=== PATIENT | male | born 1955 | race American Indian/Alaskan Native ===

== ENCOUNTER 2020-01-09 00:45 | Emergency (ER) | payer MEDICARE ==
[2020-01-09 03:36] LABS: Basophils # (Auto) 0.1 K/mm3 (0.0-0.1); Basophils % (Auto) 1.2 % (0.0-1.8); Eosinophils # (Auto) 0.4 K/mm3 (0.0-0.4); Eosinophils % (Auto) 5.6 % (0.0-4.3); Hematocrit 37.3 % (35.5-45.6); Hemoglobin 12.6 gm/dl (11.8-15.2); Lymphocytes # (Auto) 2.8 K/mm3 (1.2-5.4); Lymphocytes % (Auto) 42.6 % (13.4-35.0); Mean Corpuscular HGB Conc 34 % (32-34); Mean Corpuscular Volume 84 fl (84-94); Monocytes # (Auto) 0.4 K/mm3 (0.0-0.8); Monocytes % (Auto) 6.5 % (0.0-7.3); Platelet Count 192 K/mm3 (140-440); Red Blood Count 4.44 M/mm3 (3.65-5.03); Red Cell Distribution Width 14.4 % (13.2-15.2)
--- NOTE | 2020-01-09 03:38 | Emergency Department Report ---
ED General Adult HPI - General Chief complaint: Extremity Problem,Nontraumatic Stated complaint: SWOLLEN HANDS/FEET/EAR PAIN Time Seen by Provider: 01/09/20 02:23 Source: patient Mode of arrival: Ambulatory Limitations: No Limitations - History of Present Illness Initial comments: pt is a 64 y/o aam who presents for bilat Lower and up extremity swelling, pt states hx of DMII, and HTN. pt dnies, sob, no PND, no cp. pt does endorse secondary x 2 weeks. pt denies fall injury or trauma, this problem is recurring over the past 5 yrs. pt states pain is exacerbated by movement , Onset/Timin -: week(s) Location: back, buttocks, upper extremity, lower extremity Radiation: non-radiation, extremity Severity scale (0 -10): 5 Quality: aching Consistency: intermittent Improves with: rest, other (moist heat) Worsens with: movement Associated Symptoms: loss of appetite, nausea/vomiting, seizure, weakness Treatments Prior to Arrival: none - Related Data Previous Rx's Medication Instructions Recorded Last Taken Type Capsaicin 0.075% [Zostrix Hp 1 applicatio TP TID #1 tube 01/09/20 Unknown Rx 0.075%] Allergies Allergy/AdvReac Type Severity Reaction Status Date / Time No Known Allergies Allergy Verified 05/08/16 04:03 ED Review of Systems ROS: Stated complaint: SWOLLEN HANDS/FEET/EAR PAIN Other details as noted in HPI Constitutional: denies: chills, fever Eyes: denies: eye pain, eye discharge, vision change ENT: denies: ear pain, throat pain Respiratory: denies: cough, shortness of breath, wheezing Cardiovascular: as per HPI Endocrine: no symptoms reported Gastrointestinal: denies: abdominal pain, nausea, diarrhea Genitourinary: denies: urgency, dysuria, frequency, hematuria, discharge Musculoskeletal: myalgia. denies: back pain, joint swelling, arthralgia Skin: as per HPI. denies: rash, lesions, change in color, pruritus Neurological: numbness, confusion. denies: headache, weakness, paresthesias Psychiatric: denies: anxiety, depression Hematological/Lymphatic: denies: easy bleeding, easy bruising ED Past Medical Hx - Past Medical History Hx Diabetes: Yes Hx Psychiatric Treatment: Yes (depression) - Surgical History Past Surgical History?: No - Social History Smoking Status: Current Some Day Smoker Substance Use Type: Alcohol - Medications Home Medications: Home Medications Medication Instructions Recorded Confirmed Last Taken Type Capsaicin 0.075% [Zostrix Hp 1 applicatio TP TID #1 tube 01/09/20 Unknown Rx 0.075%] ED Physical Exam - General Limitations: No Limitations General appearance: alert, in no apparent distress - Head Head exam: Present: atraumatic, normocephalic - Eye Eye exam: Present: normal appearance, PERRL, EOMI Pupils: Present: normal accommodation - ENT ENT exam: Present: normal exam, normal orophraynx, mucous membranes moist, TM's normal bilaterally, normal external ear exam - Neck Neck exam: Present: normal inspection, full ROM. Absent: tenderness, meningismus, lymphadenopathy, thyromegaly - Respiratory Respiratory exam: Present: normal lung sounds bilaterally, accessory muscle use. Absent: respiratory distress, wheezes, rhonchi - Cardiovascular Cardiovascular Exam: Present: regular rate, normal rhythm. Absent: systolic murmur, diastolic murmur, rubs, gallop - GI/Abdominal GI/Abdominal exam: Present: soft, normal bowel sounds. Absent: distended, tenderness, guarding, rebound, rigid, bruit, hernia - Rectal Rectal exam: Present: deferred, normal rectal tone. Absent: normal prostate - Extremities Exam Extremities exam: Present: normal inspection, full ROM, tenderness (bilat hand and feet ), normal capillary refill. Absent: pedal edema, joint swelling, calf tenderness - Back Exam Back exam: Present: normal inspection. Absent: tenderness, CVA tenderness (R), CVA tenderness (L), vertebral tenderness, rash noted - Neurological Exam Neurological exam: Present: alert, oriented X3, normal gait - Psychiatric Psychiatric exam: Present: normal affect, normal mood - Skin Skin exam: Present: warm, dry, intact, normal color. Absent: rash ED Medical Decision Making - Lab Data Result diagrams: 01/09/20 03:13 01/09/20 03:13 Labs 01/09/20 01/09/20 01/09/20 03:13 03:13 03:43 WBC 6.6 RBC 4.44 Hgb 12.6 Hct 37.3 MCV 84 MCH 28 MCHC 34 RDW 14.4 Plt Count 192 Lymph % (Auto) 42.6 H [place] % (Auto) 6.5 Eos % (Auto) 5.6 H Baso % (Auto) 1.2 Lymph # 2.8 [place] # 0.4 Eos # 0.4 Baso # 0.1 Seg Neutrophils % 44.1 Seg Neutrophils # 2.9 Sodium 144 Potassium 4.2 Chloride 105.7 Carbon Dioxide 24 Anion Gap 19 BUN 22 H Creatinine 1.9 H Estimated GFR 43 BUN/Creatinine Ratio 12 Glucose 91 Calcium 9.6 Total Bilirubin 0.20 AST 23 ALT 17 Alkaline Phosphatase 52 Total Protein 7.5 Albumin 4.2 Albumin/Globulin Ratio 1.3 Urine Color Kimi Urine Turbidity Slightly-cloudy Urine pH 6.0 Ur Specific [place] 1.021 Urine Protein <15 mg/dl Urine Glucose (UA) Neg Urine Ketones Tr Urine Blood Neg Urine Nitrite Neg Urine Bilirubin Neg Urine Urobilinogen < 2.0 Ur Leukocyte Esterase Neg Urine WBC (Auto) 1.0 Urine RBC (Auto) 2.0 U Epithel Cells (Auto) < 1.0 - Medical Decision Making pt states pain improved, pt is up ambulatory with steady gait at this time, noted for bun 22.0 and Cr: 1.9 , pt is voiding without difficulty, there is no sob, no lungs sound clear bilat , no cp, no n/v , pt is tolerating po inteke without . plan: avoid NSAIDS, follow up with primary care doctor in 2-3 days , pt verbalized agreement and understanding of discharge plan, pt dc'd in stable condition Critical care attestation.: If time is entered above; I have spent that time in minutes in the direct care of this critically ill patient, excluding procedure time. ED Disposition Clinical Impression: Creatinine elevation Arthralgia Qualifiers: Joint pain location: unspecified Qualified Code(s): M25.50 - Pain in unspecified joint Disposition: DC-01 TO HOME OR SELFCARE Is pt being admited?: No Does the pt Need Aspirin: No Condition: Good Instructions: Acetaminophen (By mouth), Capsaicin (On the skin), Dehydration (ED) Prescriptions: Capsaicin 0.075% [Zostrix Hp 0.075%] 1 applicatio TP TID #1 tube Referrals: [facility] [Other] - 3-5 Days MILADYS JAY MD [Referring] - 3-5 Days Forms: Work/School Release Form(ED) Time of Disposition: 04:50
[2020-01-09] MEDS ORDERED: traMADol 50 MG TAB PO ONE (03:44)
[2020-01-09 04:01] LABS: Albumin 4.2 g/dL (3.9-5); Calcium 9.6 mg/dL (8.4-10.2)
[2020-01-09 04:04] LABS: Bilirubin,Urine NEG (Negative); Blood,Urine NEG (Negative); Color,Urine Amber (Yellow); Protein,Urine <15 mg/dL mg/dL (Negative); Urobilinogen,Urine < 2.0 mg/dL (<2.0)
[2020-01-09 05:05] VITALS: BP 185/92
== END 2020-01-09 04:55 | disposition home or self-care (01) ==
LOC: ED 00:45
DX: M25.572 Pain in left ankle and joints of left foot (principal); M25.571 Pain in right ankle and joints of right foot; M25.541 Pain in joints of right hand; M25.542 Pain in joints of left hand; R79.89 Other specified abnormal findings of blood chemistry; I10 Essential (primary) hypertension; E11.9 Type 2 diabetes mellitus without complications; F32.9 Major depressive disorder, single episode, unspecified; F17.200 Nicotine dependence, unspecified, uncomplicated; Z79.899 Other long term (current) drug therapy
CPT/HCPCS: 36415; 80053; 81001; 85025